=== PATIENT | male | born 1955 | race Caucasian/White ===

== ENCOUNTER 2018-12-03 00:03 | Emergency (ER) | payer OTHER, MEDICAID, SELFPAY ==
[2018-12-03 00:13] VITALS: BP 153/79; PULSE 68; RESP 18; TEMP 36.4; O2SAT 98
[2018-12-03] MEDS: SODIUM CHLORIDE 0.9% 1,000 ML 150 ML IV (00:30)
[2018-12-03 00:31] LABS: Add Manual Diff / Slide Review NO; Basophils Absolute Auto 100 /uL (0-100); Basophils Percent Auto 1.4 % (0-2); Eosinophils Absolute Auto 200 /uL (0-450); Hematocrit 40.9 % (41-53); Hemoglobin 14.3 g/dL (13.5-17.5); Lymphocytes Absolute Auto 1700 /uL (1100-4500); Lymphocytes Percent Auto 17.1 % (25-40); Mean Corpuscular HGB Conc 34.9 % (30-36); Mean Corpuscular Hemoglobin 28.9 PG (26-34); Mean Corpuscular Volume 82.7 fL (80-100); Monocytes Absolute Auto 700 /uL (0-900); Monocytes Percent Auto 7.4 % (3-14); Neutrophils Absolute Auto 7200 /uL (1500-7000); Neutrophils Percent Auto 72.1 % (50-75); Platelet Count 273 X10^3/uL (150-400); Red Blood Cell Count 4.95 X10^6/uL (4.5-5.9); Red Cell Distribution Width 12.6 % (11.6-14.8)
[2018-12-03 00:38] LABS: Alanine Aminotransferase 45 IU/L (21-72); Albumin 3.8 g/dL (3.5-5.0); Albumin Globulin Ratio 1.2 (1.0-2.8); Alkaline Phosphatase 103 U/L (38-126); Aspartate Aminotransferase 39 IU/L (17-59); BUN Creatinine Ratio 21.1 (6-22); Bilirubin Total 0.5 mg/dL (0.2-1.3); Blood Urea Nitrogen 19 mg/dL (9-20); Calcium 8.7 mg/dL (8.4-10.2); Carbon Dioxide 28 mmol/L (22-32); Chloride 102 mmol/L (98-107); Estimated Glomerular Filt Rate > 60.0 mL/min (>60); Globulin 3.1 g/dL (1.7-4.1); Glucose 120 mg/dL (80-110); HEMOLYSIS 28 (0-50); Lipase 127 U/L (23-300); Potassium 3.9 mmol/L (3.4-5.1); Sodium 137 mmol/L (137-145); Total Protein 6.9 g/dL (6.3-8.2)
[2018-12-03 01:00] VITALS: BP 155/78; PULSE 81; RESP 18; O2SAT 99
--- NOTE | 2018-12-03 01:19 | ED_ITS ---
HPI - Abdominal Pain General Chief Complaint: Abdominal Pain Stated Complaint: lower abdominal pain/around to back Time Seen by Provider: 12/03/18 00:55 Source: patient Mode of arrival: Ambulatory Limitations: no limitations History of Present Illness HPI narrative: Patient is a 63-year-old male who presents with abdominal pain and right-sided flank pain ongoing for the last 2 weeks. He denies any injury to his back pain is nonradiating around to his abdomen. He has no blood in his urine you not see a vomiting. Not had any fevers chills or sweats. The pain seems to stay in his right flank does not radiate into his leg. He denies any fevers but says that he does get chilled. MD complaint: abdominal pain Onset (ago): week(s) (2) Pain Consistency: intermittent Quality: cramping Related Data Previous Rx's Medication Instructions Recorded cyclobenzaprine 5 mg PO TID PRN #10 tab 12/03/18 hydrocodone-acetaminophen [[place]] 1 tab PO Q6H PRN #10 tab 12/03/18 Review of Systems Review of Systems Narrative: GENERAL: Denies chills, fatigue, malaise, fever, sweats, travel HEENT: Denies sinus pain, ear pain, sore throat, difficulty swallowing, neck pa in RESPIRATORY: Denies dyspnea, cough, wheezing, hemoptysis, sputum. CARDIOVASCULAR: Denies chest pain, palpitations, orthopnea, edema GASTROINTESTINAL: See HPI : Denies dysuria, frequency, incontinence, hematuria, urinary retention, flank pain. MUSCULOSKELETAL: Denies weakness, joint pain, or bony pain SKIN: No rash, no erythema, no pruritus NEUROLOGIC: Denies weakness, dizziness, headache, numbness, change in speech, confusion PSYCHIATRIC: No concerning psychosocial issues. 12 point review of systems is negative except for those stated above and HPI Patient History Medical History Patient denies medical problems (Acute) Social History Smoking Status: Current some day smoker tobacco type: cigarettes Substance Use Type: marijuana Exam Initial Vital Signs Initial Vital Signs: Vital Signs Temperature 97.6 F 12/03/18 00:13 Pulse Rate 68 12/03/18 00:13 Respiratory Rate 18 12/03/18 00:13 Blood Pressure 153/79 H 12/03/18 00:13 Pulse Oximetry 98 12/03/18 00:13 GENERAL: Well-appearing, well-nourished and in no acute distress. HEENT: Head atraumatic,EOMI, pupils reactive, face symmetric CARDIOVASCULAR: Regular rate and rhythm without murmurs, rubs or gallops. RESPIRATORY: Breath sounds equal bilaterally, no wheezes rales or rhonchi. ABDOMEN: Soft, mild right upper quadrant pain no guarding no rebound negative Valente sign : Mild right CVA tenderness EXTREMITIES: Normal range of motion, no clubbing or edema. Neurovascularly intact NEUROLOGICAL: Alert and oriented x4.Normal gait and speech. SKIN: Warm, dry, no laceration, no petechiae, no rashes or lesions. Course Orders Ordered: ED Orders 12/03/18 00:20 Complete Blood Count AUTO DIFF Stat Comprehensive Metabolic Panel Stat Lipase Stat 12/03/18 01:20 CT kidney ureter bladder (KUB) Stat US abdomen limited Stat 12/03/18 02:25 Ictotest Urine Stat Urine Microscopic Stat Discontinued Medications Hydrocodone Bitart/Acetaminophen (Vicodin Prepack) 1 bottle MISC SEEINSTR ONE Stop: 12/03/18 03:01 Last Admin: 12/03/18 03:11 Dose: 1 bottle Documented by: ARCHANA Cyclobenzaprine HCl (Flexeril 10 Mg Prepack) 1 bottle MISC SEEINSTR ONE Stop: 12/03/18 03:01 Last Admin: 12/03/18 03:11 Dose: 1 bottle Documented by: ARCHANA Sodium Chloride (Normal Saline 0.9%) 1,000 mls @ 150 mls/hr IV CONT KEVIN Last Infusion: 12/03/18 02:49 Dose: 150 mls/hr Documented by: Admin: 12/03/18 00:30 Dose: 150 mls/hr Documented by: KENROY Ketorolac Tromethamine (Toradol) 30 mg IV NOW ONE Stop: 12/03/18 01:21 Last Admin: 12/03/18 01:28 Dose: 30 mg Documented by: KENROY Vital Signs Vital signs: Vital Signs - 8 hr 12/03/18 00:13 12/03/18 01:00 12/03/18 02:00 Temperature 97.6 F 97.8 F Pulse Rate 68 81 54 L Respiratory Rate 18 18 16 Blood Pressure 153/79 H Blood Pressure [Left Arm] 155/78 H 154/79 H Pulse Oximetry 98 99 99 12/03/18 03:07 12/03/18 03:23 Temperature 98.6 F Pulse Rate 55 L 58 L Respiratory Rate 20 16 Blood Pressure 138/77 Blood Pressure [Left Arm] 138/77 Pulse Oximetry 99 98 MDM - Abdominal Pain Lab Data Attestation: I reviewed the patient's lab results. Result diagrams: 12/03/18 00:20 12/03/18 00:20 Labs: Lab Results 12/03/18 12/03/18 12/03/18 Range/Units 00:20 00:20 02:25 WBC 10.0 (4.5-11.0) X10^3/uL RBC 4.95 (4.5-5.9) X10^6/uL Hgb 14.3 (13.5-17.5) g/dL Hct 40.9 L (41-53) % MCV 82.7 (80-100) fL MCH 28.9 (26-34) PG MCHC 34.9 (30-36) % RDW 12.6 (11.6-14.8) % Plt Count 273 (150-400) X10^3/uL Neut % (Auto) 72.1 (50-75) % Lymph % (Auto) 17.1 L (25-40) % [place] % (Auto) 7.4 (3-14) % Eos % (Auto) 2.0 (2-4) % Baso % (Auto) 1.4 (0-2) % Neut # (Auto) 7200 H (8005-9233) /uL Lymph # (Auto) 1700 (3772-7346) /uL [place] # (Auto) 700 (0-900) /uL Eos # (Auto) 200 (0-450) /uL Baso # (Auto) 100 (0-100) /uL Sodium 137 (137-145) mmol/L Potassium 3.9 (3.4-5.1) mmol/L Chloride 102 (98-107) mmol/L Carbon Dioxide 28 (22-32) mmol/L BUN 19 (9-20) mg/dL Creatinine 0.90 (0.66-1.25) mg/dL Estimated GFR > 60.0 (>60) mL/min BUN/Creatinine Ratio 21.1 (6-22) Glucose 120 H (80-110) mg/dL Calcium 8.7 (8.4-10.2) mg/dL Total Bilirubin 0.5 (0.2-1.3) mg/dL AST 39 (17-59) IU/L ALT 45 (21-72) IU/L Alkaline Phosphatase 103 (38-126) U/L Total Protein 6.9 (6.3-8.2) g/dL Albumin 3.8 (3.5-5.0) g/dL Globulin 3.1 (1.7-4.1) g/dL Albumin/Globulin Ratio 1.2 (1.0-2.8) Lipase 127 (23-300) U/L Urine Ictotest Negative (Negative) Urine RBC None seen (0-5/HPF) Urine WBC 0-1/hpf (0-5/HPF) Urine Bacteria None seen (None) Urine Mucus 2+ H (Negative) Ur Culture Indicated? Cult not indicated Point of care testing: Urine Dip Bedside Urine Glucose Negative Bedside Urine Bilirubin + 1 Bedside Urine Ketone - Negative Urine Specific [place] 1.025 Bedside Urine Occult Blood - Negative Bedside Urine pH 5.5 Bedside Urine Protein + 30 Bedside Urine Urobilinogen +/- 1mg Bedside Urine Nitrite - Negative Bedside Urine Leukocytes - Negative Esterase Imaging Data CT scan - abdomen: Radiologist's impression: Preliminary we port: 1. No evidence of renal obstruction bilaterally. No renal or ureteral calculus. 2. No evidence of appendicitis. No bowel obstruction. 3. Grade 1 anterior listhesis of L5 on S1 secondary to bilateral pars defects on L5 US - abdomen: Radiologist's impression: Preliminary report of borderline hepatomegaly. No other significant abnormality MDM Narrative Medical decision making narrative: Patient's blood work is overall reassuring no elevated bilirubin lipase or liver enzymes. He really is complaining more of right-sided flank pain. No sign of UTI, no evidence of kidney stone. This seems to be more musculoskeletal. Patient was given Toradol for pain however she does it still did not quite help. was asking why it is difficult for him to P he does P and was able to give us a urine sample however he only piece of small amount. This is likely due to prostate. The patient does not have a PCP strongly recommend that he get a PCP. We did discuss some light activity and walking along stretching for his back. He apparently was laid off about 2 weeks ago he has been doing a lot of sitting. I discussed all findings with the patient, Education has been performed regarding treatment plan, diagnosis, warning signs and symptoms and all concerns have been addressed. Verbally agree with and understood all of the above. Discharge Plan Departure Patient Disposition: Home Clinical Impression: Low back pain Qualifiers: Chronicity: unspecified Back pain laterality: right Sciatica presence: without sciatica Qualified Code(s): M54.5 - Low back pain Discharge Date/Time: 12/03/18 03:24 Instructions: DI for Low Back Pain Activity Restrictions/Additional Instructions: *You have been diagnosed with low back pain *What to do: Light activity is encouraged along with some light stretching. He may require physical therapy, possibly an MRI if no improvement *Continue to take medications as directed [place] 1 tablet every 6 hours only needed for severe pain Flexeril 5 mg every 8 hours if needed for muscle spasm Ibuprofen 800 mg every 8 hours with food as needed for mild pain *Follow up with your primary care provider in 2-3 days *Return to ER if you should have increasing back pain, leg weakness or any new, worsening or concerning symptoms CONTROLLED SUBSTANCE DISCHARGE (Narcotoic/benzodiazepine/Flexeril/Phenergan) 1. You have been prescribed narcotic medications, it does have acetaminophen/Tylenol/paracetamol in it so do not take extra Tylenol or Tylenol containing products 2. Please understand that we cannot provide further refills of narcotics, benzodiazepines or controlled substances through the ED and her pain management will need to be through your provider. 3. While on these medications you cannot drive or operate heavy machinery. 4. You cannot sign legal documents or perform any duties such as this. 5. As long as you're taking opiate pain medications he should also be taking a stool softener such as Colace, Dulcolax, MiraLAX or prune juice, to help avoid constipation. Prescriptions: New cyclobenzaprine 5 mg tablet 5 mg PO TID PRN (Reason: muscle spasm) Qty: 10 RF: 0 hydrocodone-acetaminophen [[place]] 5-325 mg tablet 1 tab PO Q6H PRN (Reason: pain) Qty: 10 RF: 0 Referrals: [facility] [Outside]
--- NOTE | 2018-12-03 01:20 | DI.CT.S_ITS ---
PROCEDURE: CT KIDNEY URETER BLADDER (KUB) INDICATIONS: right flank pain TECHNIQUE: Noncontrast 5 mm thick sections acquired from the diaphragms to the symphysis. 5 mm thick coronal and sagittal reformats were then performed. For radiation dose reduction, the following was used: automated exposure control, adjustment of mA and/or kV according to patient size. COMPARISON: [facility], , ABDOMEN LIMITED, 12/03/2018, 2:00. FINDINGS: Image quality: Excellent. Lung bases: Lung bases are clear. Heart size is normal. Urinary system: Both kidneys are normal in size. No kidney stones. No hydronephrosis or perinephric fat stranding. Both ureters appear non-dilated throughout their expected courses. Bladder wall thickness is normal; no calcified bladder stones. Other solid organs: Liver is normal in size. Gallbladder wall is not thickened. Pancreas is normal in contours. Spleen is normal in size. No adrenal nodules. Peritoneum and bowel: Unenhanced bowel loops demonstrate normal wall thickness and caliber. No free fluid or air. Incidental note is made of a normal-appearing appendix. Nodes and vessels: No retroperitoneal or mesenteric adenopathy by size criteria. Aorta and inferior vena cava are normal in caliber. Atherosclerotic calcification is noted. Abdominal wall: A mild periumbilical hernia is seen, containing fat. Pelvis: No free pelvic fluid. No inguinal hernias or adenopathy. Bones: No suspicious bony lesions. No vertebral body compression fractures. Minimal grade 1 anterolisthesis is seen at L5-S1, with associated L5 pars defects. IMPRESSION: No findings of stones or obstructive uropathy are seen. Normal appendix. Incidental note is made of: Fat containing periumbilical hernia L5 pars defects, with associated minimal grade 1 L5-S1 anterolisthesis Note: No significant discrepancy from the preliminary report. Dictated by: Moses Cárdenas M.D. on 12/03/2018 at 8:27 Approved by: Moses Cárdenas M.D. on 12/03/2018 at 8:29
--- NOTE | 2018-12-03 01:20 | DI.US.S_ITS ---
PROCEDURE: US ABDOMEN LIMITED INDICATIONS: RIGHT UPPER QUADRANT PAIN TECHNIQUE: Real-time focused scanning was performed of the abdomen, with image documentation. COMPARISON: [facility], CT, CT KIDNEY URETER BLADDER (KUB), 12/03/2018, 1:20. FINDINGS: The liver demonstrates no focal lesions. The liver is upper limits of normal for size. No findings of gallstones or sludge are seen. The gallbladder wall is not thickened, measuring 3 mm or less. No specific pericholecystic fluid is seen. The sonographic Valente sign is negative. There is no biliary dilatation, the common bile duct measures 4 mm. The visualized pancreas is unremarkable. IMPRESSION: The gallbladder demonstrates a normal sonographic appearance. No biliary dilatation is seen. Note: No significant discrepancy from the preliminary report. Dictated by: Moses Cárdenas M.D. on 12/03/2018 at 8:29 Approved by: Moses Cárdenas M.D. on 12/03/2018 at 8:30
[2018-12-03] MEDS: KETOROLAC 60 MG/2 ML VIAL 30 MG IV (01:28)
[2018-12-03 02:00] VITALS: BP 154/79; PULSE 54; RESP 16; TEMP 36.6; O2SAT 99
[2018-12-03 02:38] LABS: Bacteria Urine None Seen; RBC Urine None Seen (0-5/HPF)
[2018-12-03 03:05] LABS: Culture Indicated Urine Cult Not Indicated; Ictotest Urine Negative (Negative); Mucus Urine 2+ (Negative); WBC Urine 0-1/HPF (0-5/HPF)
[2018-12-03 03:07] VITALS: BP 138/77; PULSE 55; RESP 20; O2SAT 99
[2018-12-03] MEDS: HYDROCODONE/ACET 5/325 PREPACK 1 BOTTLE MISC (03:11)
[2018-12-03] MEDS: CYCLOBENZAPRINE 10 MG PREPACK 1 BOTTLE MISC (03:11)
[2018-12-03 03:23] VITALS: BP 138/77; PULSE 58; RESP 16; TEMP 37; O2SAT 98
== END 2018-12-03 03:24 | disposition home or self-care (01) ==
PROVIDERS: Emergency Provider Emergency Medicine
DX: M54.5 Low back pain (principal); R10.9 Unspecified abdominal pain
CPT/HCPCS: 36415; 74176; 76705; 80053; 81003; 81015; 83690; 85025; 96374; 99283; 99284; J1885

== ENCOUNTER 2019-04-21 08:18 | Emergency (ER) | payer OTHER, MEDICAID, SELFPAY ==
[2019-04-21 08:31] VITALS: BP 160/81; PULSE 89; RESP 18; TEMP 37; O2SAT 99; BMI 27.6
--- NOTE | 2019-04-21 09:00 | ED_ITS ---
HPI - URI/Sore Throat General Chief Complaint: Upper Respiratory Symptoms Stated Complaint: CONGESTION SINUS AND LUNGS Time Seen by Provider: 04/21/19 08:47 Source: patient Mode of arrival: Ambulatory History of Present Illness HPI Narrative: HPI:4 the patient is a 63-year-old male who presents to the emergency department with chest congestion which started yesterday. The patient states that he just wants to be checked out. He states that he has had a cough with increased sputum production that has been clear without hemoptysis. He denies any chest pain shortness of breath. He actually went for a hike yesterday without any DIS comfort. He states that he has had sinus congestion with a runny nose but no sore throat or headache. He states that his sister arm is confined because she was exposed to hernandes virus. He did not state that she tested positive. He denies any fever chills sweats headache wheezing palpitations or dizziness. He has had known abdominal pain nausea vomiting diarrhea. Has had no urinary symptoms. He denies that he has had a high fever increased shortness of breath travel outside of the [place] or exposure to cope with 19. He denies a history of hypertension diabetes mellitus congestive heart failure myocardial infarction COPD or asthma. He does smoke cigarettes does not drink alcohol is retired and is living out of his travel motor home. Related Data Previous Rx's Medication Instructions Recorded albuterol sulfate 2 puff INHALATION Q4-6H PRN #8.5 04/21/19 gram azithromycin [Zithromax Z-Charan] See Rx Instructions .ROUTE 04/21/19 .COMPLEX #6 tab prednisone 40 mg PO DAILY #10 tab 04/21/19 Allergies Allergy/AdvReac Type Severity Reaction Status Date / Time Penicillins Allergy Verified 04/21/19 08:31 Review of Systems Review of Systems Narrative: Review of systems were all negative except for those mentioned in the history of present illness. Patient History Medical History Patient denies medical problems (Acute) Social History Smoking Status: Current some day smoker Smoking Status: Current some day smoker tobacco type: cigarettes Substance Use Type: marijuana Exam Narrative Exam Narrative: PHYSICAL EXAM: CONSTITUTIONAL: Awake, Alert, Oriented, Coherent, Cooperative in NAD. Does not appear toxic or ill. HEAD: AT/NC EENT: PERRL, FROM of eyes, no discharge, No epistaxis or nasal drainage Oral mucosa is moist and pink, posterior pharynx is without erythema or exudate. NECK: Supple, no obvious JVD, Trachea is midline without stridor, no palpable LN or masses. SPINE: No gross deformity, no palpable tenderness of the cervical, thoracic, lumbar or sacral spine. No CVA tenderness. THORAX: No deformity, retractions, chest wall tenderness. LUNGS: Clear with symmetrical breath sounds without respiratory distress HEART: Normal heart tones, regular rhythm and rate without murmur. ABDOMEN: Soft, non-tender, normal bowel sounds without guarding, rebound, rig idity or palpable mass . EXTREMITIES: No edema, cyanosis, deformity or tenderness. SKIN: No rash, bruising, petechiae or purpura. NEURO: Awake, alert, oriented, conversive, cranial nerves II-XII are symmetrical and normal, moves all 4 extremities and is ambulatory Initial Vital Signs Initial Vital Signs: Vital Signs Temperature 98.6 F 04/21/19 08:31 Pulse Rate 89 04/21/19 08:31 Respiratory Rate 18 04/21/19 08:31 Blood Pressure 160/81 H 04/21/19 08:31 Pulse Oximetry 99 04/21/19 08:31 Course Course Course Narrative: 0950 the patient's chest x-ray remains pending. His influenza a and B are both negative. His cardiac enzymes including troponin and BNP remain pending. His chest x-ray by my review is negative for any acute cardiopulmonary pathology consolidation or effusion. Orders Ordered: Discontinued Medications Albuterol/Ipratropium (Duoneb) 3 ml INH NOW ONE Stop: 04/21/19 09:02 Last Admin: 04/21/19 09:49 Dose: 3 ml Documented by: DAINA Prednisone (Deltasone) 60 mg PO NOW ONE Stop: 04/21/19 09:02 Last Admin: 04/21/19 09:50 Dose: 60 mg Documented by: MISAEL Vital Signs Vital signs: Vital Signs - 8 hr 04/21/19 08:31 04/21/19 09:47 Temperature 98.6 F Pulse Rate 89 80 Respiratory Rate 18 16 Blood Pressure 160/81 H Pulse Oximetry 99 97 MDM - URI/Sore Throat Medical Records Attestation: I reviewed the patient's medical records. Lab Data Attestation: I reviewed the patient's lab results. Result diagrams: 04/21/19 09:30 04/21/19 09:30 Labs: Lab Results 04/21/19 04/21/19 04/21/19 Range/Units 08:25 09:30 09:30 WBC 9.8 (4.5-11.0) X10^3/uL RBC 5.62 (4.5-5.9) X10^6/uL Hgb 16.4 (13.5-17.5) g/dL Hct 47.6 (41-53) % MCV 84.7 (80-100) fL MCH 29.1 (26-34) PG MCHC 34.4 (30-36) % RDW 12.7 (11.6-14.8) % Plt Count 194 (150-400) X10^3/uL Neut % (Auto) 76.6 H (50-75) % Lymph % (Auto) 13.2 L (25-40) % [place] % (Auto) 7.7 (3-14) % Eos % (Auto) 1.7 L (2-4) % Baso % (Auto) 0.8 (0-2) % Neut # (Auto) 7500 H (9323-1555) /uL Lymph # (Auto) 1300 (0174-8416) /uL [place] # (Auto) 800 (0-900) /uL Eos # (Auto) 200 (0-450) /uL Baso # (Auto) 100 (0-100) /uL Sodium 139 (137-145) mmol/L Potassium 4.1 (3.4-5.1) mmol/L Chloride 107 (98-107) mmol/L Carbon Dioxide 26 (22-32) mmol/L BUN 11 (9-20) mg/dL Creatinine 0.78 (0.66-1.25) mg/dL Estimated GFR > 60.0 (>60) mL/min BUN/Creatinine Ratio 14.1 (6-22) Glucose 108 (80-110) mg/dL Calcium 9.4 (8.4-10.2) mg/dL Total Bilirubin 0.6 (0.2-1.3) mg/dL AST 54 (17-59) IU/L ALT 65 H (<50) IU/L Alkaline Phosphatase 100 (38-126) U/L Total Creatine Kinase 52 L (55-170) U/L CK-MB (CK-2) TNP CK-MB (CK-2) Rel Index TNP Troponin I < 0.012 (0.01-0.034) ng/mL NT-Pro-B Natriuret Pep 220 H (<125) pg/mL Total Protein 7.9 (6.3-8.2) g/dL Albumin 4.3 (3.5-5.0) g/dL Globulin 3.6 (1.7-4.1) g/dL Albumin/Globulin Ratio 1.2 (1.0-2.8) Influenza A (RT-PCR) Flu a negative (NEGATIVE) Influenza B (RT-PCR) Flu b negative (NEGATIVE) Discharge Plan Departure Patient Disposition: Home Clinical Impression: Cough Upper respiratory infection Qualifiers: URI type: unspecified URI Qualified Code(s): J06.9 - Acute upper respiratory infection, unspecified Discharge Date/Time: 04/21/19 11:16 Instructions: DI for Cough -- Adult, DI for Acute Bronchitis, DI for Viral Upper Respiratory Infection -- Adult Activity Restrictions/Additional Instructions: 1. Follow-up in be re-evaluated by your primary care physician in 48-72 hours. 2. Take the medications as prescribed for your cough and chest congestion. 3. Drink 3-4 L of fluid per day. 4. If you develop a fever or chest discomfort with coughing take 3, 200 mg ibuprofen tablets every 6 hours for the pain and discomfort or 1000 mg of Tylenol 5. If you develop a very high fever, worsening shortness of breath, racing of y our heart dizziness or passing-out return to the emergency department. Prescriptions: New prednisone 20 mg tablet 40 mg PO DAILY Qty: 10 RF: 0 albuterol sulfate 90 mcg/actuation HFA aerosol inhaler 2 puff INHALATION Q4-6H PRN (Reason: shortness of breath or wheezing) Qty: 8.5 RF: 1 azithromycin [Zithromax Z-Charan] 250 mg tablet See Rx Instructions .ROUTE .COMPLEX Qty: 6 RF: 0
--- NOTE | 2019-04-21 09:02 | DI.RAD.S_ITS ---
PROCEDURE: XR CHEST 2V INDICATIONS: cough, chest congestion. crackles in both bases, contact precautions TECHNIQUE: 2 views of the chest were acquired. COMPARISON: None. FINDINGS: Surgical changes and devices: None. Lungs and pleura: Lungs are clear. No pleural effusions or pneumothorax. Mediastinum: Mediastinal contours are normal. Heart size is normal. Mid thoracic mild compression fracture, technically age-indeterminate IMPRESSION: No acute consolidation. Age-indeterminate mid thoracic compression fracture Dictated by: Fredy Dwyer M.D. on 04/21/2019 at 10:03 Approved by: Fredy Dwyer M.D. on 04/21/2019 at 10:12
[2019-04-21 09:16] LABS: Influenza A - CEPHEID Flu A NEGATIVE (NEGATIVE); Influenza B - CEPHEID Flu B NEGATIVE (NEGATIVE)
[2019-04-21 09:45] LABS: Add Manual Diff / Slide Review NO; Basophils Absolute Auto 100 /uL (0-100); Basophils Percent Auto 0.8 % (0-2); Eosinophils Absolute Auto 200 /uL (0-450); Eosinophils Percent Auto 1.7 % (2-4); Hematocrit 47.6 % (41-53); Hemoglobin 16.4 g/dL (13.5-17.5); Lymphocytes Absolute Auto 1300 /uL (1100-4500); Lymphocytes Percent Auto 13.2 % (25-40); Mean Corpuscular HGB Conc 34.4 % (30-36); Mean Corpuscular Hemoglobin 29.1 PG (26-34); Mean Corpuscular Volume 84.7 fL (80-100); Monocytes Absolute Auto 800 /uL (0-900); Monocytes Percent Auto 7.7 % (3-14); Neutrophils Absolute Auto 7500 /uL (1500-7000); Neutrophils Percent Auto 76.6 % (50-75); Platelet Count 194 X10^3/uL (150-400); Red Blood Cell Count 5.62 X10^6/uL (4.5-5.9); Red Cell Distribution Width 12.7 % (11.6-14.8); White Blood Cell Count 9.8 X10^3/uL (4.5-11.0)
[2019-04-21 09:47] VITALS: PULSE 80; RESP 16; O2SAT 97
[2019-04-21] MEDS: ALBUTEROL/IPRATROPIUM 3 ML AMPUL INH (09:49)
[2019-04-21] MEDS: predniSONE 20 MG TABLET 60 MG PO (09:50)
[2019-04-21 09:58] LABS: Alanine Aminotransferase 65 IU/L (<50); Albumin 4.3 g/dL (3.5-5.0); Albumin Globulin Ratio 1.2 (1.0-2.8); Alkaline Phosphatase 100 U/L (38-126); Aspartate Aminotransferase 54 IU/L (17-59); BUN Creatinine Ratio 14.1 (6-22); Bilirubin Total 0.6 mg/dL (0.2-1.3); Blood Urea Nitrogen 11 mg/dL (9-20); Calcium 9.4 mg/dL (8.4-10.2); Carbon Dioxide 26 mmol/L (22-32); Chloride 107 mmol/L (98-107); Creatine Kinase 52 U/L (55-170); Estimated Glomerular Filt Rate > 60.0 mL/min (>60); Globulin 3.6 g/dL (1.7-4.1); Glucose 108 mg/dL (80-110); HEMOLYSIS 21 (0-50); Potassium 4.1 mmol/L (3.4-5.1); Sodium 139 mmol/L (137-145); Total Protein 7.9 g/dL (6.3-8.2)
[2019-04-21 10:07] VITALS: PULSE 78; O2SAT 97
[2019-04-21 10:10] LABS: NT-proBNP (BNP-Adult 18+) 220 pg/mL (<125); Troponin I < 0.012 ng/mL (0.01-0.034)
== END 2019-04-21 11:16 | disposition home or self-care (01) ==
PROVIDERS: Emergency Provider Emergency Medicine
DX: R05 Cough (principal); J06.9 Acute upper respiratory infection, unspecified
CPT/HCPCS: 36415; 71046; 80053; 82550; 83880; 84484; 85025; 87502; 94640; 99284